=== PATIENT | male | born 1985 | race African-American/Black ===

== ENCOUNTER 2022-05-29 03:07 | Emergency (ER) | payer MEDICAID ==
[~2022-05-29] VITALS: Ht 160 cm; Wt 66.0 kg
[2022-05-29 03:35] VITALS: BP 133/82
[2022-05-29] MEDS ORDERED: CEFTRIAXONE SODIUM 500 MG/VIAL IM ONE (04:45)
[2022-05-29] MEDS ORDERED: DOXYCYCLINE HYCLATE 100MG CAPSULE PO ONE (04:45)
[2022-05-29] MEDS ORDERED: DOXYCYCLINE HYCLATE 100MG CAPSULE PO SCH (06:30)
[2022-05-29] MEDS ORDERED: CEFTRIAXONE SODIUM 500 MG/VIAL IM SCH (06:30)
[2022-05-29] MEDS ORDERED: CEFTRIAXONE SODIUM 1 G/VIAL IM ONE (06:45)
[2022-05-29] MEDS ORDERED: DOXY100T2 PO (06:46)
[2022-05-29 06:54] LABS: CLARITY URINE CLEAR (CLEAR); COLOR URINE YELLOW (YELLOW); KETONES URINE TRACE (NEGATIVE); LEUKOCYTE ESTERASE URINE NEGATIVE (NEGATIVE); NITRITE URINE NEGATIVE (NEGATIVE); OCCULT BLOOD URINE NEGATIVE (NEGATIVE); PH URINE 6.5 (4.5-8.0); PROTEIN URINE NEGATIVE (NEGATIVE); SPECIFIC GRAVITY URINE 1.031 (1.005-1.030)
[2022-05-31 14:07] LABS: NEISSERIA GONORRHOEAE NAA Positive (Negative)
== END 2022-05-29 07:14 | disposition home or self-care (01) ==
LOC: ER 03:07 → EDBD 03:07 → ER 07:14
DX: A54.9 Gonococcal infection, unspecified (principal)
CPT/HCPCS: 81003; 87491; 87591; 96372; 99283; J0696